=== PATIENT | female | born 1950 ===

== ENCOUNTER 2022-12-31 19:00 | Inpatient (IN) | payer MEDICARE, BC ==
[~2022-12-31] VITALS: Ht 154.9 cm; Wt 46.5 kg
[2023-01-01] VITALS (93 sets, daily range): BP systolic 83–152; BP diastolic 29–76; PULSE 76–120; RESP 15–34; TEMP 98–99.3; O2SAT 95–100
[2023-01-01] MEDS: NOREPINEPHRINE 8 MG/250ML KIT 250 ML IV SCH ×2 (03:15→23:49)
[2023-01-01] MEDS: SODIUM CHLORIDE 0.9% 1,000 ML IV SCH ×2 (03:15→16:35)
[2023-01-01] MEDS ORDERED: NITROGLYCERIN 0.4 MG SL TAB SL PRN (03:15)
[2023-01-01] MEDS ORDERED: MORPHINE SULFATE INJ 2 MG/ml SYRG IV PRN (03:15)
[2023-01-01 04:41] LABS: Hematocrit 33.1 % (36.0-46.0); Mean Corpuscular Hemoglobin 23.8 pg (28.0-32.0); Mean Corpuscular Hgb Conc. 30.2 g/dL (32.0-36.0); Mean Corpuscular Volume 78.8 fL (80.0-100.0); Red Blood Cells 4.21 10^6/uL (4.0-5.20)
[2023-01-01 04:42] LABS: INR 1.4 (0.9-1.15); Partial Thromboplastin Time 41.5 SEC (24.5-34.5); Prothrombin Time 14.4 sec (9.3-11.8)
[2023-01-01 04:58] LABS: Alanine Aminotransferase 35 U/L (7-40); Alkaline Phosphatase 125 U/L (46-116); Anion Gap 14.7 (5-15); BUN/Creatinine Ratio 36.6 (10.0-20.0); Blood Urea Nitrogen 41 mg/dL (9-23); Calcium 8.9 mg/dL (8.7-10.4); Carbon Dioxide 14.3 mmol/L (20-30); Chloride 114 mmol/L (98-107); Glucose 107 mg/dL (74-106); Red Cell Distribution Width 21.4 % (11.8-14.3); Sodium 143 mmol/L (136-145)
[2023-01-01 05:00] LABS: Albumin 3.1 g/dL (3.2-4.8); Aspartate Aminotransferase 79 U/L (13-40); Basophils % (manual) 0 (0.0-2.0); Bilirubin, Total 0.2 mg/dL (0.2-1.0); Blast Cells 0; Lymphocytes % (manual) 0 (10.0-50.0); Metamyelocytes % 0; Promyelocytes % 0; Reactive Lymphocytes 0; Total Protein 5.9 g/dL (5.7-8.2)
[2023-01-01] MEDS ORDERED: AZITHROMYCIN 500MG/ 250ML 250 ML IV SCH (08:00)
[2023-01-01 09:01] LABS: Band Neutrophils % (manual) 2; Eosinophils % (manual) 12 (0-7); Monocytes % (manual) 1 (0-12); Myelocytes % 3; Platelet Estimate Adequate
[2023-01-01] MEDS ORDERED: HEPARIN SODIUM (PORCINE) 5000 UNITS/ML 1ML VIAL SC SCH (10:00)
[2023-01-01] MEDS ORDERED: FAMOTIDINE 20 MG TAB PO SCH (10:00)
[2023-01-01] MEDS ORDERED: cefTRIAXone 1GM/50ML D5W 50 ML IV SCH (10:00)
[2023-01-01] MEDS: ASPirin 81 mg TAB PO SCH (10:04)
[2023-01-01] MEDS: DOXYCYCLINE 100MG/250ML 250 ML IV SCH ×2 (10:37→20:34)
[2023-01-01 12:08] LABS: Hemoglobin 10.1 g/dL (12.2-16.2); Mean Corpuscular Hemoglobin 23.8 pg (28.0-32.0)
[2023-01-01 12:11] LABS: Hematocrit 33.4 % (36.0-46.0); Mean Corpuscular Hgb Conc. 30.4 g/dL (32.0-36.0); Mean Corpuscular Volume 78.2 fL (80.0-100.0); Red Blood Cells 4.27 10^6/uL (4.0-5.20)
[2023-01-01 12:19] LABS: Red Cell Distribution Width 21.4 % (11.8-14.3)
[2023-01-01 12:22] LABS: White Blood Cell 37.6 10^3/uL (4.4-10.8)
[2023-01-01 12:23] LABS: Basophils % (manual) 0 (0.0-2.0); Blast Cells 0; Eosinophils % (manual) 0 (0-7); Metamyelocytes % 0; Promyelocytes % 0; Reactive Lymphocytes 0
[2023-01-01 12:26] LABS: INR 1.35 (0.9-1.15); Partial Thromboplastin Time 40.5 SEC (24.5-34.5); Prothrombin Time 13.9 sec (9.3-11.8)
[2023-01-01 12:29] LABS: Alanine Aminotransferase 41 U/L (7-40); Alkaline Phosphatase 111 U/L (46-116); Anion Gap 10.5 (5-15); Aspartate Aminotransferase 76 U/L (13-40); BUN/Creatinine Ratio 40.9 (10.0-20.0); Blood Urea Nitrogen 36 mg/dL (9-23); Calcium 8.8 mg/dL (8.5-10.1); Carbon Dioxide 16.5 mmol/L (20-30); Chloride 115 mmol/L (98-107); Cholesterol 69 mg/dL (< 200); Glucose 166 mg/dL (74-106); HDL Cholesterol 23 mg/dL (40-59); LDL Cholesterol 17 mg/dL (< 100); Potassium 3.8 mmol/L (3.5-5.1); Sodium 142 mmol/L (136-145); Triglycerides 111 mg/dL (< 150)
[2023-01-01 12:30] LABS: Bilirubin, Total 0.2 mg/dL (0.2-1.0); Total Protein 5.6 g/dL (5.7-8.2)
[2023-01-01 12:45] LABS: Band Neutrophils % (manual) 2; Lymphocytes % (manual) 1 (10.0-50.0); Monocytes % (manual) 3 (0-12); Myelocytes % 1
[2023-01-01 12:46] LABS: Platelet Estimate Decreased
[2023-01-01] MEDS ORDERED: LIDOCAINE 1% (LOCAL ANESTH.) PF 5ml SDV ID ONE (13:00)
[2023-01-01] MEDS: MEROPENEM 1GM IVPB 100 ML IV SCH ×2 (15:34→21:46)
[2023-01-01] MEDS ORDERED: HEPARIN DRIP/D5W 100UNITS/ML 250 ML IV SCH (19:45)
[2023-01-01] MEDS ORDERED: HEPARIN SODIUM (PORCINE) 5000 UNITS/ML 1ML VIAL IV ONE (19:45)
[2023-01-01] MEDS: ATORVASTATIN 20 MG TAB PO SCH (21:45)
[2023-01-01] MEDS: SODIUM CHLOR 0.9% PF (SALINE LOCK) 10ML VIAL/SYR IV SCH (21:45)
[2023-01-02] VITALS (100 sets, daily range): BP systolic 75–152; BP diastolic 22–118; PULSE 67–95; RESP 16–26; TEMP 97.7–98.8; O2SAT 96–100
[2023-01-02 03:24] LABS: Hemoglobin 9.8 g/dL (12.2-16.2); Mean Corpuscular Hemoglobin 23.9 pg (28.0-32.0)
[2023-01-02 03:27] LABS: Mean Corpuscular Hgb Conc. 30.6 g/dL (32.0-36.0)
[2023-01-02 03:35] LABS: INR 1.13 (0.9-1.15); Partial Thromboplastin Time 47.3 SEC (24.5-34.5); Prothrombin Time 11.8 sec (9.3-11.8)
[2023-01-02 03:55] LABS: Red Cell Distribution Width 21.3 % (11.8-14.3); White Blood Cell 41.9 10^3/uL (4.4-10.8)
[2023-01-02 03:56] LABS: Basophils % (manual) 0 (0.0-2.0); Blast Cells 0; Metamyelocytes % 0; Myelocytes % 0; Promyelocytes % 0; Reactive Lymphocytes 0
[2023-01-02] MEDS ORDERED: HEPARIN DRIP/D5W 100UNITS/ML 250 ML IV SCH (04:00)
[2023-01-02 04:38] LABS: Band Neutrophils % (manual) 24; Eosinophils % (manual) 2 (0-7); Lymphocytes % (manual) 1 (10.0-50.0); Monocytes % (manual) 1 (0-12)
[2023-01-02 04:39] LABS: Anisocytosis Slight; Hypochromia Moderate; Platelet Estimate Decreased
[2023-01-02] MEDS: SODIUM CHLORIDE 0.9% 1,000 ML IV SCH ×2 (05:38→19:44)
[2023-01-02] MEDS: MEROPENEM 1GM IVPB 100 ML IV SCH ×3 (05:38→20:57)
[2023-01-02 08:40] LABS: Chloride 117 mmol/L (98-107); Potassium 3.2 mmol/L (3.5-5.1); Sodium 144 mmol/L (136-145)
[2023-01-02 08:41] LABS: Anion Gap 11.7 (5-15); Calcium 8.8 mg/dL (8.5-10.1); Carbon Dioxide 15.3 mmol/L (20-30)
[2023-01-02 08:46] LABS: BUN/Creatinine Ratio 47.9 (10.0-20.0); Blood Urea Nitrogen 35 mg/dL (9-23); Glucose 125 mg/dL (74-106)
[2023-01-02 08:47] LABS: Magnesium 1.9 mg/dL (1.6-2.6)
[2023-01-02] MEDS: ASPirin 81 mg TAB PO SCH (10:00)
[2023-01-02] MEDS: DOXYCYCLINE 100MG/250ML 250 ML IV SCH (10:10)
[2023-01-02] MEDS: SODIUM CHLOR 0.9% PF (SALINE LOCK) 10ML VIAL/SYR IV SCH ×2 (10:10→20:57)
[2023-01-02 10:48] LABS: INR 1.09 (0.9-1.15); Prothrombin Time 11.4 sec (9.3-11.8)
[2023-01-02] MEDS ORDERED: PANTOPRAZOLE 40 MG/10 ML VIAL INJ IV ONE (11:00)
[2023-01-02] MEDS ORDERED: VANCOMYCIN PER PHARMACY 0 MG IV SCH (11:45)
[2023-01-02] MEDS ORDERED: VANCOMYCIN 1GM/250ML 250 ML IV ONE (11:45)
[2023-01-02] MEDS ORDERED: FONDAPARINUX SODIUM 7.5 MG/0.6 ML INJ SC ONE (12:00)
[2023-01-02] MEDS: POTASSIUM CHL 20MEQ/100ML 100 ML IV SCH ×2 (12:08→14:35)
[2023-01-02] MEDS: MAGNESIUM SULFATE 1GM/100ML 100 ML IV SCH ×2 (12:13→14:38)
[2023-01-02] MEDS: FLUCONAZOLE 200MG/100ML 100 ML IV SCH (14:39)
[2023-01-02] MEDS ORDERED: VANCOMYCIN PO SCH (18:00)
[2023-01-02] MEDS: VANCOMYCIN HCL 500MG/5ML ORAL SOL GT SCH ×2 (19:33→20:57)
[2023-01-02] MEDS: ATORVASTATIN 20 MG TAB PO SCH (20:57)
[2023-01-02] MEDS: MUPIROCIN 2% OINT 15gm or 22gm FOR MRSA NARES EACHNOSTRI SCH (20:58)
[2023-01-02] MEDS ORDERED: MUPIROCIN 2% OINT 15gm or 22gm FOR MRSA NARES EACHNOSTRI SCH (22:00)
[2023-01-03] VITALS (95 sets, daily range): BP systolic 92–133; BP diastolic 45–76; PULSE 63–90; RESP 15–26; TEMP 98.2–99.1; O2SAT 98–100
[2023-01-03] MEDS: NOREPINEPHRINE 8 MG/250ML KIT 250 ML IV SCH (00:07)
[2023-01-03 04:18] LABS: Anion Gap 6.8 (5-15); Carbon Dioxide 20.2 mmol/L (20-30); Chloride 118 mmol/L (98-107); Potassium 3.5 mmol/L (3.5-5.1); Sodium 145 mmol/L (136-145)
[2023-01-03 04:19] LABS: Calcium 8.6 mg/dL (8.7-10.4); Hematocrit 28.4 % (36.0-46.0); Hemoglobin 8.7 g/dL (12.2-16.2); Mean Corpuscular Hgb Conc. 30.7 g/dL (32.0-36.0); Mean Corpuscular Volume 78.1 fL (80.0-100.0); Red Blood Cells 3.64 10^6/uL (4.0-5.20); White Blood Cell 28.1 10^3/uL (4.4-10.8)
[2023-01-03 04:20] LABS: Basophils % (manual) 0 (0.0-2.0); Blast Cells 0; Eosinophils % (manual) 0 (0-7); Metamyelocytes % 0; Myelocytes % 0; Promyelocytes % 0; Reactive Lymphocytes 0; Red Cell Distribution Width 21.2 % (11.8-14.3)
[2023-01-03 04:24] LABS: BUN/Creatinine Ratio 50.9 (10.0-20.0); Blood Urea Nitrogen 28 mg/dL (9-23); Glucose 110 mg/dL (74-106)
[2023-01-03] MEDS ORDERED: VANCOMYCIN 750mg/250ml 250 ML IV SCH (05:00)
[2023-01-03] MEDS: VANCOMYCIN HCL 500MG/5ML ORAL SOL GT SCH ×4 (05:21→20:49)
[2023-01-03] MEDS: MEROPENEM 1GM IVPB 100 ML IV SCH ×3 (05:21→20:46)
[2023-01-03 07:49] LABS: Anisocytosis Slight; Band Neutrophils % (manual) 6; Lymphocytes % (manual) 2 (10.0-50.0); Monocytes % (manual) 3 (0-12); Platelet Estimate Decreased
[2023-01-03 07:50] LABS: Hypochromia Slight
[2023-01-03] MEDS: ASPirin 81 mg TAB PO SCH (09:24)
[2023-01-03] MEDS: POTASSIUM CHL 20MEQ/100ML 100 ML IV SCH ×2 (09:29→11:48)
[2023-01-03] MEDS: PANTOPRAZOLE 40 MG/10 ML VIAL INJ IV SCH (09:31)
[2023-01-03] MEDS: FLUCONAZOLE 200MG/100ML 100 ML IV SCH (09:31)
[2023-01-03] MEDS: MUPIROCIN 2% OINT 15gm or 22gm FOR MRSA NARES EACHNOSTRI SCH ×2 (09:32→20:49)
[2023-01-03] MEDS: SODIUM CHLORIDE 0.9% 1,000 ML IV SCH ×2 (09:32→20:49)
[2023-01-03] MEDS: SODIUM CHLOR 0.9% PF (SALINE LOCK) 10ML VIAL/SYR IV SCH ×2 (09:36→20:47)
[2023-01-03] MEDS: FONDAPARINUX SOD 2.5mg/0.5ml SYRINGE SC SCH (12:02)
[2023-01-03 14:07] LABS: AFP Serum Tumor Marker 2.2 ng/mL (0.0-9.2); Cancer Antigen (CA) 125 17.2 U/mL (0.0-38.1)
[2023-01-03] MEDS: Jevity 1.2 Cal/Fiber 1 Liter GT SCH (16:43)
[2023-01-03] MEDS: ATORVASTATIN 20 MG TAB PO SCH (20:46)
[2023-01-04] MEDS: VANCOMYCIN HCL 500MG/5ML ORAL SOL GT SCH ×4 (05:22→22:09)
[2023-01-04] MEDS: MEROPENEM 1GM IVPB 100 ML IV SCH ×3 (05:22→22:25)
[2023-01-04 06:24] LABS: Chloride 120 mmol/L (98-107); Potassium 3.5 mmol/L (3.5-5.1); Sodium 147 mmol/L (136-145)
[2023-01-04 06:25] LABS: Anion Gap 7 (5-15); Calcium 8.5 mg/dL (8.7-10.4); Carbon Dioxide 20 mmol/L (20-30)
[2023-01-04 06:30] LABS: BUN/Creatinine Ratio 43.5 (10.0-20.0); Blood Urea Nitrogen 20 mg/dL (9-23); Glucose 86 mg/dL (74-106); Magnesium 1.5 mg/dL (1.6-2.6)
[2023-01-04 06:35] LABS: Basophils # (auto) 0 10 ^3/uL (0-0.2); Eosinophils # (auto) 0.3 10 ^3/uL (0-0.8); Hematocrit 29.9 % (36.0-46.0)
[2023-01-04 06:36] LABS: Basophils % (auto) 0.3 % (0.0-2.0); Eosinophils % (auto) 2.1 % (0.0-7.0); Hemoglobin 9.3 g/dL (12.2-16.2); Lymphocytes % (auto) 6.6 % (10.0-50.0); Mean Corpuscular Hgb Conc. 31.1 g/dL (32.0-36.0); Mean Corpuscular Volume 77.2 fL (80.0-100.0); Monocytes % (auto) 6.4 % (0.0-12.0); Neutrophils # (auto) 12.8 10 ^3/uL (1.6-8.6); Neutrophils % (auto) 84.6 % (37.0-80.0); Nucleated Red Blood Cells % 0.1 %; Red Blood Cells 3.87 10^6/uL (4.0-5.20); White Blood Cell 15.1 10^3/uL (4.4-10.8)
[2023-01-04 06:43] LABS: Red Cell Distribution Width 21.3 % (11.8-14.3)
[2023-01-04 07:39] LABS: Platelet Estimate Decreased
[2023-01-04 08:00] VITALS: BP 117/51; PULSE 84; RESP 18; TEMP 99; O2SAT 98
[2023-01-04] MEDS: MUPIROCIN 2% OINT 15gm or 22gm FOR MRSA NARES EACHNOSTRI SCH ×2 (09:53→22:10)
[2023-01-04] MEDS: SODIUM CHLOR 0.9% PF (SALINE LOCK) 10ML VIAL/SYR IV SCH ×2 (09:54→22:10)
[2023-01-04] MEDS: FLUCONAZOLE 200MG/100ML 100 ML IV SCH (09:54)
[2023-01-04] MEDS: PANTOPRAZOLE 40 MG/10 ML VIAL INJ IV SCH (09:54)
[2023-01-04] MEDS: ASPirin 81 mg TAB PO SCH (10:32)
[2023-01-04] MEDS: SODIUM CHLORIDE 0.9% 1,000 ML IV SCH (11:02)
[2023-01-04 12:00] VITALS: BP 131/71; PULSE 65; RESP 18; TEMP 98.9; O2SAT 99
[2023-01-04] MEDS: FONDAPARINUX SOD 2.5mg/0.5ml SYRINGE SC SCH (12:26)
[2023-01-04 16:00] VITALS: BP 124/55; PULSE 90; RESP 18; TEMP 99.6; O2SAT 99
[2023-01-04 22:00] VITALS: BP 143/55; PULSE 83; RESP 17; TEMP 98.7; O2SAT 97
[2023-01-04] MEDS: ATORVASTATIN 20 MG TAB PO SCH (22:09)
[2023-01-05] VITALS (7 sets, daily range): BP systolic 125–142; BP diastolic 61–66; PULSE 81–102; RESP 17–22; TEMP 98.3–100.5; O2SAT 97–100
[2023-01-05] MEDS: VANCOMYCIN HCL 500MG/5ML ORAL SOL GT SCH ×4 (05:51→23:11)
[2023-01-05] MEDS: SODIUM CHLORIDE 0.9% 1,000 ML IV SCH ×2 (05:52→13:55)
[2023-01-05 06:02] LABS: Hematocrit 27.7 % (36.0-46.0); Hemoglobin 8.6 g/dL (12.2-16.2); Mean Corpuscular Hemoglobin 24.5 pg (28.0-32.0); Mean Corpuscular Volume 79.1 fL (80.0-100.0)
[2023-01-05 06:16] LABS: Alanine Aminotransferase 45 U/L (7-40); Albumin 2.5 g/dL (3.2-4.8); Alkaline Phosphatase 115 U/L (46-116); Anion Gap 7 (5-15); Aspartate Aminotransferase 37 U/L (13-40); BUN/Creatinine Ratio 34.9 (10.0-20.0); Bilirubin, Total 0.2 mg/dL (0.2-1.0); Blood Urea Nitrogen 15 mg/dL (9-23); Calcium 8.2 mg/dL (8.5-10.1); Carbon Dioxide 22 mmol/L (20-30); Chloride 119 mmol/L (98-107); Glucose 122 mg/dL (74-106); Potassium 3.4 mmol/L (3.5-5.1); Sodium 148 mmol/L (136-145); Total Protein 4.9 g/dL (5.7-8.2)
[2023-01-05 07:29] LABS: Band Neutrophils % (manual) 0; Basophils % (manual) 0 (0.0-2.0); Blast Cells 0; Promyelocytes % 0; Reactive Lymphocytes 0; Red Cell Distribution Width 21.3 % (11.8-14.3)
[2023-01-05] MEDS: MEROPENEM 1GM IVPB 100 ML IV SCH ×2 (10:52→23:11)
[2023-01-05] MEDS: FLUCONAZOLE 200MG/100ML 100 ML IV SCH (10:52)
[2023-01-05] MEDS: PANTOPRAZOLE 40 MG/10 ML VIAL INJ IV SCH (10:53)
[2023-01-05] MEDS: ASPirin 81 mg TAB PO SCH (10:54)
[2023-01-05] MEDS: MUPIROCIN 2% OINT 15gm or 22gm FOR MRSA NARES EACHNOSTRI SCH ×2 (10:54→23:11)
[2023-01-05] MEDS: SODIUM CHLOR 0.9% PF (SALINE LOCK) 10ML VIAL/SYR IV SCH ×2 (10:54→23:10)
[2023-01-05] MEDS: FONDAPARINUX SOD 2.5mg/0.5ml SYRINGE SC SCH (13:11)
[2023-01-05 13:14] LABS: Eosinophils % (manual) 5 (0-7); Lymphocytes % (manual) 16 (10.0-50.0); Metamyelocytes % 1; Monocytes % (manual) 8 (0-12); Myelocytes % 2
[2023-01-05 13:15] LABS: Platelet Estimate Decreased
[2023-01-05] MEDS: ATORVASTATIN 20 MG TAB PO SCH (23:11)
[2023-01-05] MEDS: Jevity 1.2 Cal/Fiber 1 Liter GT SCH (23:14)
[2023-01-06] VITALS (8 sets, daily range): BP systolic 114–143; BP diastolic 44–76; PULSE 78–98; RESP 18–21; TEMP 97.5–100.3; O2SAT 95–99
[2023-01-06] MEDS: SODIUM CHLORIDE 0.9% 1,000 ML IV SCH ×2 (06:19→16:35)
[2023-01-06] MEDS: VANCOMYCIN HCL 500MG/5ML ORAL SOL GT SCH ×4 (06:19→21:55)
[2023-01-06] MEDS: PANTOPRAZOLE 40 MG/10 ML VIAL INJ IV SCH (09:47)
[2023-01-06] MEDS: SODIUM CHLOR 0.9% PF (SALINE LOCK) 10ML VIAL/SYR IV SCH ×2 (09:47→21:55)
[2023-01-06] MEDS: ASPirin 81 mg TAB PO SCH (09:47)
[2023-01-06] MEDS: FLUCONAZOLE 200MG/100ML 100 ML IV SCH (09:47)
[2023-01-06] MEDS: MUPIROCIN 2% OINT 15gm or 22gm FOR MRSA NARES EACHNOSTRI SCH ×2 (09:49→21:55)
[2023-01-06 10:41] LABS: Eosinophils # (auto) 0.3 10 ^3/uL (0-0.8); Hemoglobin 8.8 g/dL (12.2-16.2); Lymphocytes # (auto) 1.4 10 ^3/uL (0.4-5.4); Lymphocytes % (auto) 10.7 % (10.0-50.0); Mean Corpuscular Hemoglobin 23.8 pg (28.0-32.0); Mean Corpuscular Hgb Conc. 30.9 g/dL (32.0-36.0); Monocytes # (auto) 0.8 10 ^3/uL (0-1.3); Monocytes % (auto) 5.8 % (0.0-12.0)
[2023-01-06 10:42] LABS: Basophils # (auto) 0 10 ^3/uL (0-0.2); Basophils % (auto) 0.4 % (0.0-2.0); Eosinophils % (auto) 2.2 % (0.0-7.0); Hematocrit 28.4 % (36.0-46.0); Mean Corpuscular Volume 77.1 fL (80.0-100.0); Neutrophils # (auto) 10.9 10 ^3/uL (1.6-8.6); Neutrophils % (auto) 80.9 % (37.0-80.0); Red Blood Cells 3.68 10^6/uL (4.0-5.20); White Blood Cell 13.4 10^3/uL (4.4-10.8)
[2023-01-06 10:56] LABS: Red Cell Distribution Width 21.5 % (11.8-14.3)
[2023-01-06 11:00] LABS: Alanine Aminotransferase 93 U/L (7-40); Albumin 2.7 g/dL (3.2-4.8); Alkaline Phosphatase 118 U/L (46-116); Anion Gap 8 (5-15); Aspartate Aminotransferase 76 U/L (13-40); BUN/Creatinine Ratio 30.8 (10.0-20.0); Bilirubin, Total 0.2 mg/dL (0.2-1.0); Blood Urea Nitrogen 12 mg/dL (9-23); Carbon Dioxide 24 mmol/L (20-30); Chloride 113 mmol/L (98-107); Glucose 140 mg/dL (74-106); Magnesium 1.3 mg/dL (1.6-2.6); Phosphorus 2.4 mg/dL (2.4-5.1); Potassium 3.2 mmol/L (3.5-5.1); Sodium 145 mmol/L (136-145); Total Protein 5.3 g/dL (5.7-8.2)
[2023-01-06] MEDS: MEROPENEM 1GM IVPB 100 ML IV SCH ×2 (11:48→21:58)
[2023-01-06] MEDS: Ensure HIGH Protein Chocolate 8oz Bottle PO SCH ×2 (13:01→18:57)
[2023-01-06] MEDS: FONDAPARINUX SOD 2.5mg/0.5ml SYRINGE SC SCH (13:01)
[2023-01-06] MEDS ORDERED: POTASSIUM EFFERVESENT TAB 25 MEQ GT ONE (14:30)
[2023-01-06] MEDS: MAGNESIUM SULFATE 1GM/100ML 100 ML IV SCH ×4 (15:58→18:54)
[2023-01-06] MEDS: ATORVASTATIN 20 MG TAB PO SCH (21:54)
[2023-01-06] MEDS: FLUoxetine HCL 20 MG CAP PO SCH (21:54)
[2023-01-07] VITALS (14 sets, daily range): BP systolic 105–127; BP diastolic 35–58; PULSE 82–99; RESP 15–22; TEMP 97.9–99.3; O2SAT 94–100
[2023-01-07] MEDS: Jevity 1.2 Cal/Fiber 1 Liter GT SCH (01:00)
[2023-01-07] MEDS: SODIUM CHLORIDE 0.9% 1,000 ML IV SCH ×3 (07:19→22:05)
[2023-01-07] MEDS: VANCOMYCIN HCL 500MG/5ML ORAL SOL GT SCH ×4 (07:20→22:00)
[2023-01-07 07:47] LABS: Basophils # (auto) 0.1 10 ^3/uL (0-0.2); Basophils % (auto) 0.8 % (0.0-2.0); Eosinophils # (auto) 0.5 10 ^3/uL (0-0.8); Hemoglobin 8.6 g/dL (12.2-16.2); Monocytes # (auto) 0.8 10 ^3/uL (0-1.3); Neutrophils # (auto) 15.8 10 ^3/uL (1.6-8.6); White Blood Cell 18.6 10^3/uL (4.4-10.8)
[2023-01-07 07:49] LABS: Eosinophils % (auto) 2.5 % (0.0-7.0); Hematocrit 27.5 % (36.0-46.0); Lymphocytes # (auto) 1.4 10 ^3/uL (0.4-5.4); Lymphocytes % (auto) 7.4 % (10.0-50.0); Mean Corpuscular Hemoglobin 23.8 pg (28.0-32.0); Mean Corpuscular Hgb Conc. 31.1 g/dL (32.0-36.0); Mean Corpuscular Volume 76.6 fL (80.0-100.0); Monocytes % (auto) 4.2 % (0.0-12.0); Neutrophils % (auto) 85.1 % (37.0-80.0)
[2023-01-07 07:50] LABS: Red Cell Distribution Width 21.2 % (11.8-14.3)
[2023-01-07 07:58] LABS: Alanine Aminotransferase 147 U/L (7-40); Albumin 2.6 g/dL (3.2-4.8); Alkaline Phosphatase 119 U/L (46-116); Anion Gap 3 (5-15); Aspartate Aminotransferase 98 U/L (13-40); BUN/Creatinine Ratio 37.5 (10.0-20.0); Blood Urea Nitrogen 12 mg/dL (9-23); Calcium 7.7 mg/dL (8.7-10.4); Carbon Dioxide 27 mmol/L (20-30); Chloride 107 mmol/L (98-107); Glucose 122 mg/dL (74-106); Sodium 137 mmol/L (136-145)
[2023-01-07 07:59] LABS: Bilirubin, Total 0.2 mg/dL (0.2-1.0); Total Protein 5.3 g/dL (5.7-8.2)
[2023-01-07] MEDS: FLUCONAZOLE 200MG/100ML 100 ML IV SCH (08:25)
[2023-01-07] MEDS: PANTOPRAZOLE 40 MG/10 ML VIAL INJ IV SCH (08:25)
[2023-01-07] MEDS: ASPirin 81 mg TAB PO SCH (08:25)
[2023-01-07] MEDS: MUPIROCIN 2% OINT 15gm or 22gm FOR MRSA NARES EACHNOSTRI SCH (08:26)
[2023-01-07] MEDS: SODIUM CHLOR 0.9% PF (SALINE LOCK) 10ML VIAL/SYR IV SCH ×2 (08:26→22:04)
[2023-01-07] MEDS: Ensure HIGH Protein Chocolate 8oz Bottle PO SCH ×3 (08:45→18:00)
[2023-01-07] MEDS: MEROPENEM 1GM IVPB 100 ML IV SCH ×2 (10:06→22:05)
[2023-01-07] MEDS: FONDAPARINUX SOD 2.5mg/0.5ml SYRINGE SC SCH (12:06)
[2023-01-07] MEDS: ALBUTEROL SULF 2.5 MG/0.5ML(0.5%) NEB SOLN NEB SCH ×2 (14:55→18:08)
[2023-01-07] MEDS: ACETYLCYSTEINE 20%(200MG/ML) SOL 4ML NEB SCH ×2 (14:55→18:09)
[2023-01-07] MEDS: ATORVASTATIN 20 MG TAB PO SCH (22:04)
[2023-01-07] MEDS: FLUoxetine HCL 20 MG CAP PO SCH (22:04)
[2023-01-08] VITALS (13 sets, daily range): BP systolic 105–127; BP diastolic 51–63; PULSE 76–103; RESP 17–28; TEMP 97.9–99.5; O2SAT 97–100
[2023-01-08] MEDS: VANCOMYCIN HCL 500MG/5ML ORAL SOL GT SCH ×4 (05:29→22:51)
[2023-01-08] MEDS: ACETYLCYSTEINE 20%(200MG/ML) SOL 4ML NEB SCH ×3 (07:01→18:49)
[2023-01-08] MEDS: ALBUTEROL SULF 2.5 MG/0.5ML(0.5%) NEB SOLN NEB SCH ×3 (07:01→18:49)
[2023-01-08 07:12] LABS: Hematocrit 25.7 % (36.0-46.0); Mean Corpuscular Hemoglobin 23.8 pg (28.0-32.0); Mean Corpuscular Volume 76.7 fL (80.0-100.0); Red Blood Cells 3.35 10^6/uL (4.0-5.20); White Blood Cell 18.4 10^3/uL (4.4-10.8)
[2023-01-08 07:15] LABS: Alanine Aminotransferase 132 U/L (7-40); Albumin 2.5 g/dL (3.2-4.8); Alkaline Phosphatase 116 U/L (46-116); Anion Gap 4 (5-15); Aspartate Aminotransferase 69 U/L (13-40); BUN/Creatinine Ratio 40.6 (10.0-20.0); Blood Urea Nitrogen 13 mg/dL (9-23); Carbon Dioxide 27 mmol/L (20-30); Chloride 105 mmol/L (98-107); Glucose 113 mg/dL (74-106); Potassium 4.6 mmol/L (3.5-5.1); Red Cell Distribution Width 21.3 % (11.8-14.3); Sodium 136 mmol/L (136-145)
[2023-01-08 07:16] LABS: Bilirubin, Total 0.2 mg/dL (0.2-1.0); Total Protein 5.2 g/dL (5.7-8.2)
[2023-01-08 07:17] LABS: Band Neutrophils % (manual) 0; Basophils % (manual) 0 (0.0-2.0); Blast Cells 0; Eosinophils % (manual) 0 (0-7); Metamyelocytes % 0; Myelocytes % 0; Promyelocytes % 0; Reactive Lymphocytes 0
[2023-01-08 07:43] LABS: Lymphocytes % (manual) 10 (10.0-50.0); Monocytes % (manual) 1 (0-12)
[2023-01-08 07:44] LABS: Platelet Estimate Adequate
[2023-01-08] MEDS: Ensure HIGH Protein Chocolate 8oz Bottle PO SCH ×3 (08:00→18:16)
[2023-01-08] MEDS: MEROPENEM 1GM IVPB 100 ML IV SCH ×2 (09:43→22:53)
[2023-01-08] MEDS: PANTOPRAZOLE 40 MG/10 ML VIAL INJ IV SCH (09:44)
[2023-01-08] MEDS: SODIUM CHLOR 0.9% PF (SALINE LOCK) 10ML VIAL/SYR IV SCH ×2 (09:44→22:00)
[2023-01-08] MEDS: ASPirin 81 mg TAB PO SCH (09:44)
[2023-01-08] MEDS: FLUCONAZOLE 200MG/100ML 100 ML IV SCH (10:00)
[2023-01-08] MEDS: FONDAPARINUX SOD 2.5mg/0.5ml SYRINGE SC SCH (12:15)
[2023-01-08] MEDS: FERROUS SULFATE 300 MG/5 ML ORAL LIQ GT SCH ×2 (18:16→22:52)
[2023-01-08] MEDS: SODIUM CHLORIDE 0.9% 1,000 ML IV SCH (20:53)
[2023-01-08] MEDS: FLUoxetine HCL 20 MG CAP PO SCH (22:53)
[2023-01-08] MEDS: ATORVASTATIN 20 MG TAB PO SCH (22:53)
[2023-01-09] VITALS (13 sets, daily range): BP systolic 100–138; BP diastolic 49–67; PULSE 84–93; RESP 14–20; TEMP 98.1–99.5; O2SAT 95–100
[2023-01-09] MEDS: FERROUS SULFATE 300 MG/5 ML ORAL LIQ GT SCH ×3 (05:46→22:17)
[2023-01-09] MEDS: VANCOMYCIN HCL 500MG/5ML ORAL SOL GT SCH ×4 (05:47→22:16)
[2023-01-09] MEDS: ACETYLCYSTEINE 20%(200MG/ML) SOL 4ML NEB SCH ×3 (06:48→22:06)
[2023-01-09] MEDS: ALBUTEROL SULF 2.5 MG/0.5ML(0.5%) NEB SOLN NEB SCH ×3 (06:48→22:06)
[2023-01-09] MEDS: Ensure HIGH Protein Chocolate 8oz Bottle PO SCH ×3 (08:00→18:40)
[2023-01-09 09:15] LABS: Basophils # (auto) 0.1 10 ^3/uL (0-0.2); Hematocrit 23.6 % (36.0-46.0); Hemoglobin 7.3 g/dL (12.2-16.2); Monocytes # (auto) 0.8 10 ^3/uL (0-1.3)
[2023-01-09 09:17] LABS: Basophils % (auto) 0.5 % (0.0-2.0); Eosinophils # (auto) 0.3 10 ^3/uL (0-0.8); Eosinophils % (auto) 1.5 % (0.0-7.0); Lymphocytes # (auto) 1.1 10 ^3/uL (0.4-5.4); Lymphocytes % (auto) 5.3 % (10.0-50.0); Mean Corpuscular Hemoglobin 23.5 pg (28.0-32.0); Mean Corpuscular Volume 75.9 fL (80.0-100.0); Monocytes % (auto) 4.2 % (0.0-12.0); Neutrophils # (auto) 17.6 10 ^3/uL (1.6-8.6); Neutrophils % (auto) 88.5 % (37.0-80.0); Red Blood Cells 3.11 10^6/uL (4.0-5.20); Red Cell Distribution Width 21.5 % (11.8-14.3); White Blood Cell 19.9 10^3/uL (4.4-10.8)
[2023-01-09] MEDS: FLUCONAZOLE 200MG/100ML 100 ML IV SCH (09:34)
[2023-01-09 09:35] LABS: Alanine Aminotransferase 115 U/L (7-40); Albumin 2.7 g/dL (3.2-4.8); Alkaline Phosphatase 108 U/L (46-116); Anion Gap 1 (5-15); Aspartate Aminotransferase 55 U/L (13-40); Bilirubin, Total 0.2 mg/dL (0.2-1.0); Blood Urea Nitrogen 13 mg/dL (9-23); Calcium 7.8 mg/dL (8.7-10.4); Carbon Dioxide 28 mmol/L (20-30); Chloride 107 mmol/L (98-107); Glucose 91 mg/dL (74-106); Potassium 4.2 mmol/L (3.5-5.1); Sodium 136 mmol/L (136-145); Total Protein 5.2 g/dL (5.7-8.2)
[2023-01-09] MEDS: PANTOPRAZOLE 40 MG/10 ML VIAL INJ IV SCH (09:36)
[2023-01-09] MEDS: ASPirin 81 mg TAB PO SCH (09:36)
[2023-01-09] MEDS: SODIUM CHLOR 0.9% PF (SALINE LOCK) 10ML VIAL/SYR IV SCH ×2 (09:36→22:25)
[2023-01-09] MEDS: MEROPENEM 1GM IVPB 100 ML IV SCH ×2 (11:23→22:17)
[2023-01-09] MEDS: SODIUM CHLORIDE 0.9% 1,000 ML IV SCH (11:24)
[2023-01-09] MEDS: Jevity 1.2 Cal/Fiber 1 Liter GT SCH (13:01)
[2023-01-09] MEDS: FONDAPARINUX SOD 2.5mg/0.5ml SYRINGE SC SCH (13:02)
[2023-01-09] MEDS: ATORVASTATIN 20 MG TAB PO SCH (22:16)
[2023-01-09] MEDS: FLUoxetine HCL 20 MG CAP PO SCH (22:16)
[2023-01-10] VITALS (15 sets, daily range): BP systolic 98–115; BP diastolic 35–65; PULSE 63–94; RESP 14–22; TEMP 98.4–100; O2SAT 96–100
[2023-01-10] MEDS: SODIUM CHLORIDE 0.9% 1,000 ML IV SCH ×2 (00:35→13:30)
[2023-01-10 05:35] LABS: Basophils # (auto) 0.1 10 ^3/uL (0-0.2); Basophils % (auto) 0.6 % (0.0-2.0); Eosinophils # (auto) 0.3 10 ^3/uL (0-0.8); Hemoglobin 7.7 g/dL (12.2-16.2); Lymphocytes # (auto) 1.5 10 ^3/uL (0.4-5.4)
[2023-01-10 05:37] LABS: Eosinophils % (auto) 1.7 % (0.0-7.0); Lymphocytes % (auto) 8.9 % (10.0-50.0); Mean Corpuscular Hemoglobin 23.7 pg (28.0-32.0); Mean Corpuscular Hgb Conc. 30.9 g/dL (32.0-36.0); Mean Corpuscular Volume 76.7 fL (80.0-100.0); Monocytes # (auto) 0.9 10 ^3/uL (0-1.3); Monocytes % (auto) 5.6 % (0.0-12.0); Neutrophils # (auto) 13.6 10 ^3/uL (1.6-8.6); Neutrophils % (auto) 83.2 % (37.0-80.0); Red Blood Cells 3.25 10^6/uL (4.0-5.20); White Blood Cell 16.3 10^3/uL (4.4-10.8)
[2023-01-10 05:40] LABS: Red Cell Distribution Width 21.2 % (11.8-14.3)
[2023-01-10 05:48] LABS: Alanine Aminotransferase 110 U/L (7-40); Albumin 3.1 g/dL (3.2-4.8); Alkaline Phosphatase 117 U/L (46-116); Anion Gap 3 (5-15); Aspartate Aminotransferase 46 U/L (13-40); BUN/Creatinine Ratio 51.5 (10.0-20.0); Blood Urea Nitrogen 17 mg/dL (9-23); Calcium 8.6 mg/dL (8.7-10.4); Carbon Dioxide 26 mmol/L (20-30); Chloride 104 mmol/L (98-107); Glucose 113 mg/dL (74-106); Potassium 4.6 mmol/L (3.5-5.1); Sodium 133 mmol/L (136-145)
[2023-01-10 05:49] LABS: Bilirubin, Total 0.2 mg/dL (0.2-1.0)
[2023-01-10] MEDS: FERROUS SULFATE 300 MG/5 ML ORAL LIQ GT SCH ×3 (06:07→21:05)
[2023-01-10] MEDS: VANCOMYCIN HCL 500MG/5ML ORAL SOL GT SCH ×5 (06:08→21:11)
[2023-01-10] MEDS: ALBUTEROL SULF 2.5 MG/0.5ML(0.5%) NEB SOLN NEB SCH ×3 (06:36→22:31)
[2023-01-10] MEDS: ACETYLCYSTEINE 20%(200MG/ML) SOL 4ML NEB SCH ×3 (06:36→22:31)
[2023-01-10] MEDS: ASPirin 81 mg TAB PO SCH (09:46)
[2023-01-10] MEDS: SODIUM CHLOR 0.9% PF (SALINE LOCK) 10ML VIAL/SYR IV SCH ×2 (09:46→21:04)
[2023-01-10] MEDS: FLUCONAZOLE 200MG/100ML 100 ML IV SCH (09:46)
[2023-01-10] MEDS: PANTOPRAZOLE 40 MG/10 ML VIAL INJ IV SCH (09:46)
[2023-01-10] MEDS: Ensure HIGH Protein Chocolate 8oz Bottle PO SCH ×3 (09:47→18:49)
[2023-01-10] MEDS: FONDAPARINUX SOD 2.5mg/0.5ml SYRINGE SC SCH (13:30)
[2023-01-10] MEDS: Jevity 1.2 Cal/Fiber 1 Liter GT SCH (15:00)
[2023-01-10] MEDS: ATORVASTATIN 20 MG TAB PO SCH (21:05)
[2023-01-10] MEDS: FLUoxetine HCL 20 MG CAP PO SCH (21:05)
[2023-01-11] VITALS (14 sets, daily range): BP systolic 107–126; BP diastolic 42–56; PULSE 82–94; RESP 16–20; TEMP 97.8–99.4; O2SAT 92–100
[2023-01-11] MEDS: SODIUM CHLORIDE 0.9% 1,000 ML IV SCH ×2 (03:34→18:04)
[2023-01-11] MEDS: FERROUS SULFATE 300 MG/5 ML ORAL LIQ GT SCH ×3 (06:04→21:25)
[2023-01-11] MEDS: VANCOMYCIN HCL 500MG/5ML ORAL SOL GT SCH ×4 (06:07→21:26)
[2023-01-11] MEDS: ALBUTEROL SULF 2.5 MG/0.5ML(0.5%) NEB SOLN NEB SCH ×3 (06:13→22:31)
[2023-01-11] MEDS: ACETYLCYSTEINE 20%(200MG/ML) SOL 4ML NEB SCH ×3 (06:13→22:32)
[2023-01-11] MEDS: Ensure HIGH Protein Chocolate 8oz Bottle PO SCH ×3 (08:22→18:04)
[2023-01-11 09:51] LABS: Basophils # (auto) 0.1 10 ^3/uL (0-0.2); Hemoglobin 7.6 g/dL (12.2-16.2); Neutrophils # (auto) 11.5 10 ^3/uL (1.6-8.6)
[2023-01-11 09:52] LABS: Basophils % (auto) 0.6 % (0.0-2.0); Eosinophils # (auto) 0.3 10 ^3/uL (0-0.8); Eosinophils % (auto) 1.9 % (0.0-7.0); Hematocrit 23.8 % (36.0-46.0); Lymphocytes % (auto) 7.5 % (10.0-50.0); Mean Corpuscular Hemoglobin 23.9 pg (28.0-32.0); Mean Corpuscular Hgb Conc. 31.8 g/dL (32.0-36.0); Mean Corpuscular Volume 75.1 fL (80.0-100.0); Monocytes % (auto) 7.3 % (0.0-12.0); Neutrophils % (auto) 82.7 % (37.0-80.0); Red Blood Cells 3.17 10^6/uL (4.0-5.20); White Blood Cell 13.9 10^3/uL (4.4-10.8)
[2023-01-11 10:01] LABS: Red Cell Distribution Width 21.2 % (11.8-14.3)
[2023-01-11 10:08] LABS: Alanine Aminotransferase 108 U/L (7-40); Albumin 3.2 g/dL (3.2-4.8); Alkaline Phosphatase 113 U/L (46-116); Anion Gap 4 (5-15); Aspartate Aminotransferase 48 U/L (13-40); BUN/Creatinine Ratio 45.5 (10.0-20.0); Bilirubin, Total < 0.2 mg/dL (0.2-1.0); Blood Urea Nitrogen 15 mg/dL (9-23); Calcium 8.5 mg/dL (8.7-10.4); Carbon Dioxide 25 mmol/L (20-30); Chloride 105 mmol/L (98-107); Glucose 119 mg/dL (74-106); Potassium 4.3 mmol/L (3.5-5.1); Sodium 134 mmol/L (136-145); Total Protein 6.2 g/dL (5.7-8.2)
[2023-01-11] MEDS: FONDAPARINUX SOD 2.5mg/0.5ml SYRINGE SC SCH (11:43)
[2023-01-11] MEDS: FLUCONAZOLE 200MG/100ML 100 ML IV SCH (11:44)
[2023-01-11] MEDS: PANTOPRAZOLE 40 MG/10 ML VIAL INJ IV SCH (11:44)
[2023-01-11] MEDS: ASPirin 81 mg TAB PO SCH (11:44)
[2023-01-11] MEDS: SODIUM CHLOR 0.9% PF (SALINE LOCK) 10ML VIAL/SYR IV SCH ×2 (11:45→21:25)
[2023-01-11] MEDS: FLUoxetine HCL 20 MG CAP PO SCH (21:25)
[2023-01-11] MEDS: ATORVASTATIN 20 MG TAB PO SCH (21:25)
[2023-01-12] VITALS (13 sets, daily range): BP systolic 118–137; BP diastolic 43–63; PULSE 84–105; RESP 17–20; TEMP 98.6–99.8; O2SAT 94–99
[2023-01-12] MEDS: VANCOMYCIN HCL 500MG/5ML ORAL SOL GT SCH ×4 (05:27→22:07)
[2023-01-12] MEDS: FERROUS SULFATE 300 MG/5 ML ORAL LIQ GT SCH ×3 (05:27→22:07)
[2023-01-12] MEDS: SODIUM CHLORIDE 0.9% 1,000 ML IV SCH ×2 (05:29→19:15)
[2023-01-12 05:30] LABS: Eosinophils # (auto) 0.1 10 ^3/uL (0-0.8); Monocytes # (auto) 1.2 10 ^3/uL (0-1.3); Monocytes % (auto) 7.6 % (0.0-12.0); Nucleated Red Blood Cells % 0.1 %
[2023-01-12 05:32] LABS: Basophils # (auto) 0.2 10 ^3/uL (0-0.2); Eosinophils % (auto) 0.8 % (0.0-7.0); Hematocrit 25.3 % (36.0-46.0); Hemoglobin 7.9 g/dL (12.2-16.2); Lymphocytes # (auto) 1.5 10 ^3/uL (0.4-5.4); Lymphocytes % (auto) 9.4 % (10.0-50.0); Mean Corpuscular Hemoglobin 24.1 pg (28.0-32.0); Mean Corpuscular Hgb Conc. 31.2 g/dL (32.0-36.0); Mean Corpuscular Volume 77.1 fL (80.0-100.0); Neutrophils # (auto) 12.9 10 ^3/uL (1.6-8.6); Neutrophils % (auto) 81.2 % (37.0-80.0); Red Blood Cells 3.29 10^6/uL (4.0-5.20); White Blood Cell 15.9 10^3/uL (4.4-10.8)
[2023-01-12 05:38] LABS: Red Cell Distribution Width 21.5 % (11.8-14.3)
[2023-01-12 05:49] LABS: Alanine Aminotransferase 92 U/L (7-40); Albumin 3.2 g/dL (3.2-4.8); Alkaline Phosphatase 115 U/L (46-116); Anion Gap 5 (5-15); Aspartate Aminotransferase 29 U/L (13-40); BUN/Creatinine Ratio 33.3 (10.0-20.0); Bilirubin, Total 0.2 mg/dL (0.2-1.0); Blood Urea Nitrogen 13 mg/dL (9-23); Calcium 9.2 mg/dL (8.7-10.4); Carbon Dioxide 23 mmol/L (20-30); Chloride 106 mmol/L (98-107); Glucose 112 mg/dL (74-106); Potassium 4.7 mmol/L (3.5-5.1); Sodium 134 mmol/L (136-145); Total Protein 6.5 g/dL (5.7-8.2)
[2023-01-12] MEDS: ALBUTEROL SULF 2.5 MG/0.5ML(0.5%) NEB SOLN NEB SCH ×3 (07:37→21:22)
[2023-01-12] MEDS: ACETYLCYSTEINE 20%(200MG/ML) SOL 4ML NEB SCH ×3 (07:38→21:22)
[2023-01-12] MEDS: PANTOPRAZOLE 40 MG/10 ML VIAL INJ IV SCH (09:25)
[2023-01-12] MEDS: SODIUM CHLOR 0.9% PF (SALINE LOCK) 10ML VIAL/SYR IV SCH ×2 (09:25→22:07)
[2023-01-12] MEDS: FLUCONAZOLE 200MG/100ML 100 ML IV SCH (09:26)
[2023-01-12] MEDS: Ensure HIGH Protein Chocolate 8oz Bottle PO SCH ×3 (09:27→18:00)
[2023-01-12] MEDS: ASPirin 81 mg TAB PO SCH (09:27)
[2023-01-12] MEDS: FONDAPARINUX SOD 2.5mg/0.5ml SYRINGE SC SCH (13:30)
[2023-01-12] MEDS ORDERED: Jevity 1.2 Cal/Fiber 1 Liter GT SCH (15:45)
[2023-01-12] MEDS: ATORVASTATIN 20 MG TAB PO SCH (22:06)
[2023-01-12] MEDS: FLUoxetine HCL 20 MG CAP PO SCH (22:07)
[2023-01-13] VITALS (15 sets, daily range): BP systolic 117–129; BP diastolic 43–87; PULSE 75–97; RESP 14–20; TEMP 97.5–98.8; O2SAT 96–100
[2023-01-13 05:27] LABS: Basophils # (auto) 0.1 10 ^3/uL (0-0.2); Eosinophils # (auto) 0.2 10 ^3/uL (0-0.8); Hemoglobin 7.2 g/dL (12.2-16.2); Lymphocytes # (auto) 1.4 10 ^3/uL (0.4-5.4); Lymphocytes % (auto) 11.3 % (10.0-50.0)
[2023-01-13 05:29] LABS: Basophils % (auto) 0.8 % (0.0-2.0); Eosinophils % (auto) 1.8 % (0.0-7.0); Hematocrit 22.7 % (36.0-46.0); Mean Corpuscular Hemoglobin 23.6 pg (28.0-32.0); Mean Corpuscular Hgb Conc. 31.6 g/dL (32.0-36.0); Mean Corpuscular Volume 74.9 fL (80.0-100.0); Monocytes # (auto) 1.1 10 ^3/uL (0-1.3); Monocytes % (auto) 9.5 % (0.0-12.0); Neutrophils # (auto) 9.3 10 ^3/uL (1.6-8.6); Neutrophils % (auto) 76.6 % (37.0-80.0); Red Blood Cells 3.03 10^6/uL (4.0-5.20); Red Cell Distribution Width 21.8 % (11.8-14.3); White Blood Cell 12.1 10^3/uL (4.4-10.8)
[2023-01-13 05:41] LABS: Alanine Aminotransferase 68 U/L (7-40); Albumin 2.9 g/dL (3.2-4.8); Alkaline Phosphatase 110 U/L (46-116); Anion Gap 3 (5-15); Aspartate Aminotransferase 18 U/L (13-40); BUN/Creatinine Ratio 35.9 (10.0-20.0); Blood Urea Nitrogen 14 mg/dL (9-23); Calcium 9.1 mg/dL (8.7-10.4); Carbon Dioxide 25 mmol/L (20-30); Chloride 105 mmol/L (98-107); Glucose 118 mg/dL (74-106); Potassium 4.5 mmol/L (3.5-5.1); Sodium 133 mmol/L (136-145)
[2023-01-13 05:42] LABS: Bilirubin, Total 0.2 mg/dL (0.2-1.0); Total Protein 6.4 g/dL (5.7-8.2)
[2023-01-13] MEDS: FERROUS SULFATE 300 MG/5 ML ORAL LIQ GT SCH ×3 (05:57→21:23)
[2023-01-13] MEDS: VANCOMYCIN HCL 500MG/5ML ORAL SOL GT SCH ×3 (05:58→17:31)
[2023-01-13] MEDS: ACETYLCYSTEINE 20%(200MG/ML) SOL 4ML NEB SCH ×3 (07:36→21:44)
[2023-01-13] MEDS: ALBUTEROL SULF 2.5 MG/0.5ML(0.5%) NEB SOLN NEB SCH ×3 (07:36→21:45)
[2023-01-13] MEDS: Ensure HIGH Protein Chocolate 8oz Bottle PO SCH ×3 (08:00→17:31)
[2023-01-13] MEDS: SODIUM CHLORIDE 0.9% 1,000 ML IV SCH ×2 (09:53→22:38)
[2023-01-13] MEDS: FLUCONAZOLE 200MG/100ML 100 ML IV SCH (09:55)
[2023-01-13] MEDS: PANTOPRAZOLE 40 MG/10 ML VIAL INJ IV SCH (09:58)
[2023-01-13] MEDS: ASPirin 81 mg TAB PO SCH (09:58)
[2023-01-13] MEDS: SODIUM CHLOR 0.9% PF (SALINE LOCK) 10ML VIAL/SYR IV SCH ×2 (10:06→21:23)
[2023-01-13] MEDS: FONDAPARINUX SOD 2.5mg/0.5ml SYRINGE SC SCH (12:04)
[2023-01-13] MEDS: ACETAMINOPHEN 650 mg PER 20.3 mL UD GT PRN (19:45)
[2023-01-13] MEDS: ATORVASTATIN 20 MG TAB PO SCH (21:23)
[2023-01-13] MEDS: FLUoxetine HCL 20 MG CAP PO SCH (21:23)
[2023-01-14] VITALS (13 sets, daily range): BP systolic 118–141; BP diastolic 55–71; PULSE 62–92; RESP 14–22; TEMP 98.3–99.3; O2SAT 94–100
[2023-01-14] MEDS: FERROUS SULFATE 300 MG/5 ML ORAL LIQ GT SCH ×3 (05:53→21:11)
[2023-01-14 05:56] LABS: Basophils # (auto) 0.2 10 ^3/uL (0-0.2); Eosinophils # (auto) 0.3 10 ^3/uL (0-0.8); Eosinophils % (auto) 2.4 % (0.0-7.0); Hemoglobin 7.4 g/dL (12.2-16.2); Monocytes # (auto) 1.1 10 ^3/uL (0-1.3); Neutrophils # (auto) 8.5 10 ^3/uL (1.6-8.6); Neutrophils % (auto) 75.3 % (37.0-80.0); White Blood Cell 11.3 10^3/uL (4.4-10.8)
[2023-01-14 05:58] LABS: Basophils % (auto) 1.7 % (0.0-2.0); Hematocrit 23.4 % (36.0-46.0); Lymphocytes # (auto) 1.2 10 ^3/uL (0.4-5.4); Mean Corpuscular Hemoglobin 23.8 pg (28.0-32.0); Mean Corpuscular Hgb Conc. 31.7 g/dL (32.0-36.0); Mean Corpuscular Volume 75.1 fL (80.0-100.0); Monocytes % (auto) 9.6 % (0.0-12.0); Red Blood Cells 3.12 10^6/uL (4.0-5.20); Red Cell Distribution Width 20.8 % (11.8-14.3)
[2023-01-14 06:02] LABS: Alanine Aminotransferase 57 U/L (7-40); Albumin 2.9 g/dL (3.2-4.8); Alkaline Phosphatase 107 U/L (46-116); Anion Gap 4 (5-15); Aspartate Aminotransferase 19 U/L (13-40); BUN/Creatinine Ratio 40.5 (10.0-20.0); Bilirubin, Total < 0.2 mg/dL (0.2-1.0); Blood Urea Nitrogen 15 mg/dL (9-23); Calcium 9.1 mg/dL (8.7-10.4); Carbon Dioxide 24 mmol/L (20-30); Chloride 107 mmol/L (98-107); Glucose 109 mg/dL (74-106); Potassium 4.5 mmol/L (3.5-5.1); Sodium 135 mmol/L (136-145); Total Protein 6.5 g/dL (5.7-8.2)
[2023-01-14] MEDS: ACETYLCYSTEINE 20%(200MG/ML) SOL 4ML NEB SCH ×3 (07:07→22:39)
[2023-01-14] MEDS: ALBUTEROL SULF 2.5 MG/0.5ML(0.5%) NEB SOLN NEB SCH ×3 (07:07→22:39)
[2023-01-14] MEDS: Ensure HIGH Protein Chocolate 8oz Bottle PO SCH ×3 (08:00→17:35)
[2023-01-14] MEDS: ASPirin 81 mg TAB PO SCH (09:58)
[2023-01-14] MEDS: PANTOPRAZOLE 40 MG/10 ML VIAL INJ IV SCH (09:58)
[2023-01-14] MEDS: SODIUM CHLOR 0.9% PF (SALINE LOCK) 10ML VIAL/SYR IV SCH ×2 (09:58→21:11)
[2023-01-14] MEDS: SODIUM CHLORIDE 0.9% 1,000 ML IV SCH (10:27)
[2023-01-14] MEDS: FONDAPARINUX SOD 2.5mg/0.5ml SYRINGE SC SCH (12:56)
[2023-01-14] MEDS: FLUoxetine HCL 20 MG CAP PO SCH (21:11)
[2023-01-14] MEDS: ATORVASTATIN 20 MG TAB PO SCH (21:11)
[2023-01-14] MEDS: ACETAMINOPHEN 650 mg PER 20.3 mL UD GT PRN (23:39)
[2023-01-15] VITALS (21 sets, daily range): BP systolic 110–133; BP diastolic 44–78; PULSE 79–118; RESP 14–26; TEMP 98.4–99.9; O2SAT 91–100
[2023-01-15] MEDS: SODIUM CHLORIDE 0.9% 1,000 ML IV SCH ×3 (00:35→23:13)
[2023-01-15 05:10] LABS: Urine Bacteria NONE SEEN /hpf (None Seen); Urine Blood 1+ /uL (Negative); Urine Clarity CLOUDY (Clear); Urine Mucus FEW (None Seen); Urine Protein, UAD 1+ (Negative); Urine Specific Gravity 1.016 (1.001-1.035); Urine Urobilinogen Normal (Negative); Urine WBC 2528 /hpf (0 - 5); Urine WBC Clumps PRESENT /hpf (None Seen)
[2023-01-15 05:11] LABS: Urine Color Straw (Yellow)
[2023-01-15 05:16] LABS: INR 1.14 (0.9-1.15); Prothrombin Time 11.9 sec (9.3-11.8)
[2023-01-15 05:23] LABS: Alanine Aminotransferase 50 U/L (7-40); Alkaline Phosphatase 103 U/L (46-116); Anion Gap 5 (5-15); Aspartate Aminotransferase 16 U/L (13-40); BUN/Creatinine Ratio 36.8 (10.0-20.0); Blood Urea Nitrogen 14 mg/dL (9-23); Calcium 9.3 mg/dL (8.7-10.4); Carbon Dioxide 25 mmol/L (20-30); Chloride 104 mmol/L (98-107); Glucose 121 mg/dL (74-106); Potassium 4.4 mmol/L (3.5-5.1); Sodium 134 mmol/L (136-145)
[2023-01-15 05:24] LABS: Bilirubin, Total < 0.2 mg/dL (0.2-1.0); Total Protein 6.5 g/dL (5.7-8.2)
[2023-01-15 05:25] LABS: Hemoglobin 7.4 g/dL (12.2-16.2); Monocytes # (auto) 1.1 10 ^3/uL (0-1.3); Monocytes % (auto) 8.1 % (0.0-12.0); Neutrophils # (auto) 10.5 10 ^3/uL (1.6-8.6)
[2023-01-15 05:26] LABS: Basophils # (auto) 0.2 10 ^3/uL (0-0.2); Basophils % (auto) 1.3 % (0.0-2.0); Eosinophils # (auto) 0.2 10 ^3/uL (0-0.8); Eosinophils % (auto) 1.8 % (0.0-7.0); Hematocrit 23.3 % (36.0-46.0); Lymphocytes # (auto) 1.6 10 ^3/uL (0.4-5.4); Lymphocytes % (auto) 11.5 % (10.0-50.0); Mean Corpuscular Hemoglobin 23.6 pg (28.0-32.0); Mean Corpuscular Hgb Conc. 31.6 g/dL (32.0-36.0); Mean Corpuscular Volume 74.8 fL (80.0-100.0); Neutrophils % (auto) 77.3 % (37.0-80.0); Red Blood Cells 3.11 10^6/uL (4.0-5.20); White Blood Cell 13.6 10^3/uL (4.4-10.8)
[2023-01-15 05:34] LABS: Red Cell Distribution Width 21.4 % (11.8-14.3)
[2023-01-15] MEDS: FERROUS SULFATE 300 MG/5 ML ORAL LIQ GT SCH ×3 (05:59→22:03)
[2023-01-15] MEDS: ACETYLCYSTEINE 20%(200MG/ML) SOL 4ML NEB SCH ×3 (06:13→22:02)
[2023-01-15] MEDS: ALBUTEROL SULF 2.5 MG/0.5ML(0.5%) NEB SOLN NEB SCH ×3 (06:13→22:02)
[2023-01-15] MEDS: Ensure HIGH Protein Chocolate 8oz Bottle PO SCH ×3 (08:00→19:48)
[2023-01-15] MEDS ORDERED: IODIXANOL 320MG/ML 100ML BTL IV ONE (14:37)
[2023-01-15] MEDS ORDERED: LIDOCAINE 2%HCL (LOCAL ANESTH.) INJ 20ML MDV ONE ×2 (14:38→15:56)
[2023-01-15] MEDS ORDERED: ANGIOMAX 250 MG VIAL IV ONE (15:54)
[2023-01-15] MEDS ORDERED: VERAPAMIL 2.5MG/ML INJ 2ML VIAL IV ONE (15:54)
[2023-01-15] MEDS ORDERED: fentaNYL CITRATE 100 MCG/2 ML VL ONE (15:54)
[2023-01-15] MEDS ORDERED: MIDAZOLAM HCL 2MG/2ML 2ml VIAL (1mg/ml) ONE (15:54)
[2023-01-15] MEDS ORDERED: HEPARIN SODIUM (PORCINE) 5000 UNITS/ML 1ML VIAL ONE (15:54)
[2023-01-15] MEDS ORDERED: SODIUM CHL 0.9% 0 ML ONE (15:55)
[2023-01-15] MEDS ORDERED: IOHEXOL 350 MG/ML 100ML IJ ONE (15:56)
[2023-01-15] MEDS: SODIUM CHLOR 0.9% PF (SALINE LOCK) 10ML VIAL/SYR IV SCH ×2 (18:00→22:03)
[2023-01-15] MEDS: ASPirin 81 mg TAB PO SCH (18:16)
[2023-01-15] MEDS: PANTOPRAZOLE 40 MG/10 ML VIAL INJ IV SCH (18:16)
[2023-01-15] MEDS: ATORVASTATIN 20 MG TAB PO SCH (22:02)
[2023-01-15] MEDS: FLUoxetine HCL 20 MG CAP PO SCH (22:03)
[2023-01-15] MEDS: ACETAMINOPHEN 650 mg PER 20.3 mL UD GT PRN (22:03)
[2023-01-16] VITALS (14 sets, daily range): BP systolic 115–140; BP diastolic 41–60; PULSE 67–97; RESP 16–20; TEMP 98.2–99.1; O2SAT 95–100
[2023-01-16] MEDS: ACETAMINOPHEN 650 mg PER 20.3 mL UD GT PRN ×3 (05:17→18:32)
[2023-01-16] MEDS: FERROUS SULFATE 300 MG/5 ML ORAL LIQ GT SCH ×3 (06:27→21:48)
[2023-01-16] MEDS: ALBUTEROL SULF 2.5 MG/0.5ML(0.5%) NEB SOLN NEB SCH ×3 (06:59→21:45)
[2023-01-16] MEDS: ACETYLCYSTEINE 20%(200MG/ML) SOL 4ML NEB SCH ×3 (07:00→21:45)
[2023-01-16] MEDS: PANTOPRAZOLE 40 MG/10 ML VIAL INJ IV SCH (12:04)
[2023-01-16] MEDS: ASPirin 81 mg TAB PO SCH (12:04)
[2023-01-16] MEDS: SODIUM CHLOR 0.9% PF (SALINE LOCK) 10ML VIAL/SYR IV SCH ×2 (12:04→21:49)
[2023-01-16] MEDS: Ensure HIGH Protein Chocolate 8oz Bottle PO SCH ×3 (12:04→18:30)
[2023-01-16] MEDS: ENOXAPARIN SOD 30 MG/0.3 ML SYRINGE SC SCH (12:04)
[2023-01-16] MEDS: SODIUM CHLORIDE 0.9% 1,000 ML IV SCH (18:29)
[2023-01-16] MEDS: ATORVASTATIN 20 MG TAB PO SCH (21:48)
[2023-01-16] MEDS: FLUoxetine HCL 20 MG CAP PO SCH (21:49)
[2023-01-17] VITALS (11 sets, daily range): BP systolic 120–139; BP diastolic 54–73; PULSE 73–92; RESP 14–17; TEMP 98.2–99; O2SAT 96–100
[2023-01-17] MEDS: SODIUM CHLORIDE 0.9% 1,000 ML IV SCH (06:08)
[2023-01-17] MEDS: FERROUS SULFATE 300 MG/5 ML ORAL LIQ GT SCH ×2 (06:08→14:08)
[2023-01-17] MEDS: ALBUTEROL SULF 2.5 MG/0.5ML(0.5%) NEB SOLN NEB SCH ×2 (06:41→14:28)
[2023-01-17] MEDS: ACETYLCYSTEINE 20%(200MG/ML) SOL 4ML NEB SCH ×2 (06:41→14:28)
[2023-01-17 08:46] LABS: Eosinophils # (auto) 0.5 10 ^3/uL (0-0.8); Hemoglobin 7.4 g/dL (12.2-16.2); Lymphocytes # (auto) 1.3 10 ^3/uL (0.4-5.4); Lymphocytes % (auto) 8.9 % (10.0-50.0); Monocytes # (auto) 0.8 10 ^3/uL (0-1.3)
[2023-01-17 08:49] LABS: Basophils # (auto) 0.1 10 ^3/uL (0-0.2); Basophils % (auto) 0.8 % (0.0-2.0); Eosinophils % (auto) 3.3 % (0.0-7.0); Hematocrit 22.6 % (36.0-46.0); Mean Corpuscular Hemoglobin 24.5 pg (28.0-32.0); Mean Corpuscular Hgb Conc. 32.9 g/dL (32.0-36.0); Mean Corpuscular Volume 74.6 fL (80.0-100.0); Monocytes % (auto) 5.9 % (0.0-12.0); Neutrophils # (auto) 11.6 10 ^3/uL (1.6-8.6); Neutrophils % (auto) 81.1 % (37.0-80.0); Red Blood Cells 3.03 10^6/uL (4.0-5.20); White Blood Cell 14.3 10^3/uL (4.4-10.8)
[2023-01-17 08:56] LABS: Anion Gap 5 (5-15); Carbon Dioxide 23 mmol/L (20-30); Chloride 105 mmol/L (98-107); Potassium 4.2 mmol/L (3.5-5.1); Sodium 133 mmol/L (136-145)
[2023-01-17 08:57] LABS: Calcium 8.9 mg/dL (8.7-10.4)
[2023-01-17 09:02] LABS: BUN/Creatinine Ratio 23.9 (10.0-20.0); Blood Urea Nitrogen 11 mg/dL (9-23); Glucose 162 mg/dL (74-106)
[2023-01-17 09:06] LABS: Red Cell Distribution Width 21.5 % (11.8-14.3)
[2023-01-17 09:46] LABS: Hypochromia Slight; Platelet Estimate Increased
[2023-01-17 09:47] LABS: Anisocytosis Slight
[2023-01-17] MEDS: ASPirin 81 mg TAB PO SCH (10:59)
[2023-01-17] MEDS: ENOXAPARIN SOD 30 MG/0.3 ML SYRINGE SC SCH (10:59)
[2023-01-17] MEDS: SODIUM CHLOR 0.9% PF (SALINE LOCK) 10ML VIAL/SYR IV SCH (10:59)
[2023-01-17] MEDS: PANTOPRAZOLE 40 MG/10 ML VIAL INJ IV SCH (10:59)
[2023-01-17] MEDS: Ensure HIGH Protein Chocolate 8oz Bottle PO SCH ×2 (11:00→12:24)
[2023-01-17] MEDS: ACETAMINOPHEN 650 mg PER 20.3 mL UD GT PRN (11:00)
== END 2023-01-17 17:45 | DRG 871 ==
LOC: UNDOADMIN 01-01 01:31 → ICU WEST 01-01 01:31 → TELE-CENTR 01-03 22:04
PROVIDERS: ADMIT Specialist; ATTEND Nurse Practitioner
PROC: 02HV33Z Insertion of Infusion Device into Superior Vena Cava, Percutaneous Approach (ICD-10-PCS; 2023-01-01)
PROC: B548ZZA Ultrasonography of Superior Vena Cava, Guidance (ICD-10-PCS; 2023-01-01)
PROC: 4A023N7 Measurement of Cardiac Sampling and Pressure, Left Heart, Percutaneous Approach (ICD-10-PCS; principal; 2023-01-15)
PROC: B211YZZ Fluoroscopy of Multiple Coronary Arteries using Other Contrast (ICD-10-PCS; 2023-01-15)
PROC: B215YZZ Fluoroscopy of Left Heart using Other Contrast (ICD-10-PCS; 2023-01-15)
DX: A41.9 Sepsis, unspecified organism (principal); G93.41 Metabolic encephalopathy; J96.01 Acute respiratory failure with hypoxia; R65.21 Severe sepsis with septic shock; I21.4 Non-ST elevation (NSTEMI) myocardial infarction; J18.9 Pneumonia, unspecified organism; E46 Unspecified protein-calorie malnutrition; E87.20 Acidosis, unspecified; J44.0 Chronic obstructive pulmonary disease with (acute) lower respiratory infection; A04.72 Enterocolitis due to Clostridium difficile, not specified as recurrent; J98.11 Atelectasis; N17.9 Acute kidney failure, unspecified; B38.0 Acute pulmonary coccidioidomycosis; I69.351 Hemiplegia and hemiparesis following cerebral infarction affecting right dominant side; Z68.1 Body mass index [BMI] 19.9 or less, adult; D64.9 Anemia, unspecified; Z66 Do not resuscitate; E88.09 Other disorders of plasma-protein metabolism, not elsewhere classified; L89.159 Pressure ulcer of sacral region, unspecified stage; E04.1 Nontoxic single thyroid nodule; E11.22 Type 2 diabetes mellitus with diabetic chronic kidney disease; F32.A Depression, unspecified; D69.59 Other secondary thrombocytopenia; N18.9 Chronic kidney disease, unspecified; I69.320 Aphasia following cerebral infarction; Z93.1 Gastrostomy status; Z80.0 Family history of malignant neoplasm of digestive organs; Z80.1 Family history of malignant neoplasm of trachea, bronchus and lung; Z51.5 Encounter for palliative care
CPT/HCPCS: 36415; 36569; 70450; 71045; 71260; 73030; 73080; 73110; 74177; 76536; 76705; 76775; 80048; 80053; 80061; 80202; 81001; 82105; 82378; 83036; 83735; 83880; 84100; 84443; 84484; 85007; 85025; 85027; 85610; 85730; 86301; 86304; 86850; 86900; 86901; 86920; 87040; 87077; 87081; 87086; 87088; 87186; 87493; 92610; 93306; 93458; 93970; 94640; 95819; 99152; C1887; C1894; C9113; G0378; J0696; J1450; J1652; J2185; J2250; J3480; J3490; Q9967